=== PATIENT | female | born 1965 | race Caucasian/White ===

== ENCOUNTER 2017-07-11 23:06 | Emergency (ER) | payer OTHER ==
[~2017-07-11] VITALS: Ht 154.9 cm; Wt 113.9 kg
[~2017-07-11 23:06] MED LIST: PREDNISONE10 MG PO
--- NOTE | 2017-07-12 00:15 | ED ANKLE/FOOT INJURY COMPLAINT ---
History of Present Illness General Chief Complaint: Lower Extremity Problems Stated Complaint: RIGHT ANKLE PAIN Source: patient Exam Limitations: no limitations Vital Signs & Intake/Output Vital Signs & Intake/Output Vital Signs Date Time Temp Pulse Resp B/P B/P Pulse O2 O2 Flow FiO2 Mean Ox Delivery Rate 07/12 0107 98.0 69 15 121/67 99 Room Air 07/11 2326 97.0 78 20 130/81 97 Room Air ED Intake and Output 07/12 0000 07/11 1200 Intake Total Output Total Balance Patient 251 lb Weight Weight Reported by Patient Measurement Method Allergies Coded Allergies: NO KNOWN ALLERGIES (10/18/11) Reconcile Medications Morphine Sulfate 15 MG TABLET 1 TAB PO 4XDP PRN PAIN Prednisone (Deltasone) 20 MG TABLET 1 TAB PO ONCE DAILY GOUT Prednisone 10 MG TABLET 0 TAB PO DAILY . 3 TABS TWICE A DAY X 3 DAYS 2 TABS TWICE A DAY X 3 DAYS 1 TABS TWICE A DAY X 3 DAYS 1/2 TAB TWICE A DAY X 2 DAYS Triage Note: PT EREPORTS HAVING RIGHT ANKLE PAIN THAT BEGAN YESTERDAY AFTER WORK. PT STATES THAT SHE HAS HX OF NEUROPATHY. DENIES TRAUMA. PT REPORTS TAKING LYRICA AND NAPROSYN FOR PAIN. NO DEFORMITY NOTED. Triage Nurses Notes Reviewed? yes Occurred: last week Duration: week(s): (1), constant, continues in ED, getting worse Timing: single episode today Severity: moderate, severe Severity Numbers: 9 Pain/Injury Location: Right: Ankle. Method of Injury: unknown No Modifying Factors: none Modifying Factors: Improves With: movement. LMP (ages 10-50): post menopausal : No Patient currently breastfeeds: No HPI: 52-year-old female past mental history of neuropathy, obesity, liver failure, diabetes, ovarian cancer presents for evaluation of pain in her right ankle. Patient states the pain has gradually gotten worse over the past week. The pain is located mostly on the medial aspect of the ankle and does not radiate. It is worse with movement or even lightly touching the area. States that she's been having difficulty sleeping because even the presence of the sheet on her ankle causes severe pain. This been no redness no fever no swelling. There was no known trauma or triggering event. She reports that the sensation as a burning pain. She does have a history of neuropathy refills of his different. She's been taking gabapentin and Lyrica and naproxen without any improvement. She does have numbness and tingling in the bilateral lower extremities at baseline. She denies any calf swelling or pain no recent surgery or trauma. (Jarred Urbina) Past History Travel History Traveled to [place] past 21 day No Medical History Any Pertinent Medical History? see below for history Neurological: peripheral neuropathy Hepatic: STAGE 4 LIVER FAILURE Endocrine: diabetes Cancer(s): ovarian cancer Surgical History Surgical History: non-contributory Psychosocial History What is your primary language [place] Tobacco Use: Never used ETOH Use: denies use Illicit Drug Use: denies illicit drug use Family History Hx Contributory? No (Jarred Urbina) Review of Systems Review of Systems Constitutional: Reports: no symptoms. EENTM: Reports: no symptoms. Respiratory: Reports: no symptoms. Cardiovascular: Reports: no symptoms. GI: Reports: no symptoms. Genitourinary: Reports: no symptoms. Musculoskeletal: Reports: joint pain, joint swelling, muscle pain, muscle stiffness. Skin: Reports: no symptoms. Neurological/Psychological: Reports: no symptoms. Hematologic/Endocrine: Reports: no symptoms. Immunologic/Allergic: Reports: no symptoms. All Other Systems: Reviewed and Negative (Jarred Urbina) Physical Exam Physical Exam General Appearance: well developed/nourished, no apparent distress, alert, awake Head: atraumatic, normal appearance Eyes: Bilateral: normal appearance, EOMI. Ears, Nose, Throat: hearing grossly normal Neck: normal inspection, supple, full range of motion Cardiovascular/Respiratory: no respiratory distress Back: normal inspection, normal range of motion Leg/Knee/Thigh Left: normal range of motion, normal inspection Leg/Knee/Thigh Right: normal range of motion, normal inspection Ankle Left: normal inspection, normal range of motion Ankle Right: normal inspection, normal range of motion, THERE IS SEVERE PAIN WITH PALPATION OF EVEN THE SKIN OF THE OVERLYING MEDIAL ANKLE. tHERE IS NO REDNESS NO OBSERVABLE SWELLING. fULL RANGE OF MOTION OF THE ANKLE IS INTACT BUT WITH PAIN. pATIENT IS ABLE TO WALK AND BEAR WEIGHT. nEUROVASCULAR SUPPLY INTACT. nO BONY POINT TENDERNESS NO GROSS DEFORMITY NO BRUISING Foot Left: normal inspection, normal range of motion Foot Right: normal inspection, normal range of motion Neuro/Vascular: normal motor function, normal sensation Tendon: normal tendon function Psychiatric: awake, alert, oriented x 3 Skin: intact, normal color, warm/dry (Jarred Urbina) Progress Differential Diagnosis: cellulitis, septic arthritis, gout, fracture, dislocation, sprain, contusion Plan of Care: Current Medications Sig/Estrada Start time Last Medication Dose Stop Time Status Admin Morphine Sulfate 4 MG ONCE ONE 07/12 14 UNVr 07/12 (Morphine) 07/13 15 0044 Patient is here with right ankle pain. No trauma or known triggering event. She is able to walk and bear weight. She has severe tenderness with even light palpation of the medial ankle. There is no redness or swelling. She's got pain as a burning pain. Suspect this may be an exacerbation of the patient's peripheral neuropathy or possibly gout. No signs of infection. She was given IM morphine here and is feeling better. She was given a prescription for morphine to go home with. Also she was given a low-dose of prednisone and advised to follow-up with primary care doctor for a uric acid level discussed return precautions in detail. Rest ice elevation compression she agrees the plan Diagnostic Imaging: Viewed by Me: Radiology Read. Discussed w/RAD: Radiology Read. Radiology Impression: PATIENT: ADARSH GRECO PRESENT AGE: 52 PATIENT ACCOUNT NO: [id number] : 65 LOCATION: [facility] ORDERING PHYSICIAN: Fady Watson MD SERVICE DATE: 07/11/17 EXAM TYPE: RAD - XRY-ANKLE 3 OR MORE VIEWS R EXAMINATION: XR ANKLE, RIGHT CLINICAL INFORMATION: Pain COMPARISON: None TECHNIQUE: AP, lateral, and mortise views of the right ankle. FINDINGS: No fracture or dislocation. The ankle mortise is congruent. No ankle joint effusion. Mild circumferential soft tissue swelling. Soft tissue calcifications noted. Plantar heel spur. IMPRESSION: No acute fracture or malalignment. Prominent plantar heel spur. DICTATED BY: Frank Hitchcock MD DATE/TIME DICTATED:07/12/1726 CUT ORDER HAND:ISABELA DATE/ TIME TRANSCRIBED:07/12/1726 CONFIDENTIAL, DO NOT COPY WITHOUT APPROPRIATE AUTHORIZATION. <Electronically signed in Other Vendor System> SIGNED BY: Frank Hitchcock MD 07/12/17 0031 (Jarred Urbina) Departure Departure Disposition: HOME OR SELF CARE Condition: Stable Clinical Impression Primary Impression: Ankle pain, right Qualifiers: Chronicity: acute Qualified Code: M25.571 - Pain in right ankle and joints of right foot Referrals: Unknown (PCP) Additional Instructions: Rest, avoid excessive weightbearing and walking. Keep your ankle elevated. Continue naproxen 500 mg every 12 hours as needed. Take prednisone as directed full course. Morphine as needed for severe pain only this may cause drowsiness. Make a follow-up with her primary care doctor to review all results of today's visit. Monitor symptoms closely return with any concerns. Departure Forms: Customer Survey General Discharge Information Prescriptions: Current Visit Scripts Prednisone (Deltasone) 1 TAB PO ONCE DAILY #5 TAB Morphine Sulfate 1 TAB PO 4XDP PRN PAIN #10 TAB (Jarred Urbina) PA/ACADEMIC ASSISTANT Co-Sign Statement Statement: ED Attending supervision documentation- [] I saw and evaluated the patient. I have also reviewed all the pertinent lab results and diagnostic results. I agree with the findings and the plan of care as documented in the PA's/ACADEMIC ASSISTANT's documentation. [X] I have reviewed the ED Record and agree with the PA's/ACADEMIC ASSISTANT's documentation. [] Additions or exceptions (if any) to the PAs/ACADEMIC ASSISTANT's note and plan are summarized below: [] (Watler BANGURA,aFdy Tsai)
--- NOTE | 2017-07-12 00:31 | RADIOLOGY REPORT ---
EXAMINATION: XR ANKLE, RIGHT CLINICAL INFORMATION: Pain COMPARISON: None TECHNIQUE: AP, lateral, and mortise views of the right ankle. FINDINGS: No fracture or dislocation. The ankle mortise is congruent. No ankle joint effusion. Mild circumferential soft tissue swelling. Soft tissue calcifications noted. Plantar heel spur. IMPRESSION: No acute fracture or malalignment. Prominent plantar heel spur.
[2017-07-12] MEDS ORDERED: DELTASONE20 MG PO (00:59)
[2017-07-12] MEDS ORDERED: MORPHINE SULFAT15 M4 PO (00:59)
[2017-07-12 01:07] VITALS: BP 121/67
== END 2017-07-12 01:09 ==
LOC: ERH 23:06
DX: M25.571 Pain in right ankle and joints of right foot (principal)
CPT/HCPCS: 73610-RT; 96372

== ENCOUNTER 2017-08-01 16:23 | Emergency (ER) | payer OTHER ==
[~2017-08-01] VITALS: Ht 154.9 cm; Wt 113.4 kg
[~2017-08-01 16:23] MED LIST changes: +DELTASONE20 MG PO; +MORPHINE SULFAT15 M4 PO
[2017-08-01 16:53] LABS: ABSOLUTE BASOPHIL COUNT 0 /CUMM (0.0-0.2); ABSOLUTE EOSINOPHIL COUNT 0 /CUMM (0.0-0.7); ABSOLUTE GRANULOCYTE CT 6.4 /CUMM (1.4-6.5); ABSOLUTE LYMPH COUNT 0.6 /CUMM (1.2-3.4); ABSOLUTE MONOCYTE COUNT 0.1 /CUMM (0.10-0.60); BASOPHIL % 0 % (0.0-2.0); EOSINOPHIL % 0.1 % (0-5); GRANULOCYTE % 90.3 % (42.2-75.2); HEMATOCRIT 39.9 % (37-47); MEAN CORPUSCULAR HGB 26.1 PG (27.0-31.0); MEAN CORPUSCULAR HGB CONC 32.7 G/DL (33.0-37.0); MEAN CORPUSCULAR VOLUME 79.7 FL (81.0-99.0); MEAN PLATELET VOLUME 10.9 FL (7.4-10.4); PLATELET COUNT 213 /CUMM (130-400); RBC DISTRIBUTION WIDTH 15.1 % (11.5-14.5); RED BLOOD CELL CT 5.01 /CUMM (4.20-5.40); WHITE BLOOD CELL COUNT 7.1 /CUMM (4.8-10.8)
--- NOTE | 2017-08-01 20:44 | CT SCAN REPORT ---
EXAMINATION: CT ABD PELVIS W/O IV CONTRAS CLINICAL INFORMATION: Presumptive Dx: SBO, PANCREATITS CHOLCYSTITIS, COLITIS
Signs Symptoms: DIFFUSE ABDOMINAL PAIN N/V/D
COMPARISON: None TECHNIQUE: Multidetector volumetric imaging was performed from the superior aspect of the liver through the pubic symphysis Study done without contrast. Sagittal and coronal reformatted images were obtained on the technologist's workstation. DLP: 1239 mGy-cm FINDINGS: LOWER THORAX: Included lung bases are clear. HEPATOBILIARY: Evaluation of the liver is limited on noncontrast study. No CT evidence of large liver mass, no intrahepatic biliary dilatation. GALLBLADDER: Gallbladder unremarkable. SPLEEN: Spleen is normal in size. PANCREAS: No focal mass or ductal dilatation. STOMACH AND GASTROINTESTINAL TRACT: There are postsurgical changes of prior partial gastrectomy. There are postsurgical changes of a prior anastomosis. Nonobstructive bowel gas pattern. No CT evidence of appendicitis. ADRENALS: Bilateral hypertrophic changes of the adrenal, no adrenal mass. KIDNEYS/URETERS: Evaluation of the kidneys limited on noncontrasted study, there are no kidney stones. No hydronephrosis. Perinephric fat are clear. URINARY BLADDER: Bladder is distended unopacified. PELVIC VISCERA: Rectum and perirectal fat are clear. Uterus unremarkable. No pelvic mass or free air. No free fluid. PERITONEUM: No free air or fluid. LYMPH NODES: No lymphadenopathy. VASCULAR:Abdominal aorta normal in size, no aneurysm found. BONES, ABDOMINAL WALL AND SOFT TISSUES: Subacute incompletely healed a fracture anterior lateral aspect of the LEFT ninth rib. There are age-related degenerative changes of the spine. No destructive bone lesion. Abdominal wall is intact. No evidence of hernia. IMPRESSION: 1. Postsurgical changes of prior gastric surgery, bowel anastomosis. 2. No CT evidence of acute intra-abdominal inflammatory process to explain patient's pain symptoms. 3. Subacute incompletely healed anterior lateral aspect of the LEFT ninth rib.
--- NOTE | 2017-08-01 22:15 | ED GI/GU/ABDOMINAL COMPLAINT ---
History of Present Illness General Chief Complaint: General Adult Stated Complaint: PT VOMITING ALL NIGTH CAN'T KEEP ANYTING DOWN Source: patient, old records Exam Limitations: no limitations Vital Signs & Intake/Output Vital Signs & Intake/Output Vital Signs Date Time Temp Pulse Resp B/P B/P Pulse O2 O2 Flow FiO2 Mean Ox Delivery Rate 08/01 2305 98.4 70 20 144/75 97 Room Air 08/01 2014 98.6 68 20 156/67 100 Room Air 08/01 1805 Room Air 08/01 1631 97.7 69 30 139/73 99 Room Air Allergies Coded Allergies: NO KNOWN ALLERGIES (10/18/11) Reconcile Medications Morphine Sulfate 15 MG TABLET 1 TAB PO 4XDP PRN PAIN Prednisone (Deltasone) 20 MG TABLET 1 TAB PO ONCE DAILY GOUT Prednisone 10 MG TABLET 0 TAB PO DAILY . 3 TABS TWICE A DAY X 3 DAYS 2 TABS TWICE A DAY X 3 DAYS 1 TABS TWICE A DAY X 3 DAYS 1/2 TAB TWICE A DAY X 2 DAYS Promethazine HCl 12.5 MG TABLET 1 TAB PO Q6-8 PRN NAUSEA Triage Note: 52F REPORTS N/V SINCE LAST NIGHT, UNABLE TO KEEP ANYTHING DOWN. REPORTS DIARRHEA LAST NIGHT. DENIES BLOOD TO EMESIS OR STOOL. REPORTS DIFFUSE ABDOMINAL PAIN. HX LIVER FAILURE. PT IS ANXIOUS AND HYPERVENTILATING IN TRIAGE. MEDICATED WITH ODT. BECAME INCREASINGLY ANXIOUS ABOUT BLOOD DRAW BECAUSE SHE HAS "NO VEINS" SO THIS RN RUFINA VIA BUTTERFLY IN TRIAGE AND PT WAS WIMPERING AND CRYING AND HYPERVENTILATING MORE, AND WHEN BLOODWORK SUCCESSFULLY OBTAINED PT WENT UNRESPONSIVE BUT BREATHING ADEQUATELY. SHOT AWAKE AFTER STERNAL RUB. Triage Nurses Notes Reviewed? yes LMP (ages 10-50): unknown ? N Is pt currently ? No Onset: Abrupt Duration: day(s): (1-2), constant, continues in ED, getting worse Timing: single episode today Quality/Severity: cramping, vomiting Severity Numbers: 7 Location: generalized abdomen Radiation: no radiation Activities at Onset: none Prior Abdominal Problems: similar symptoms Past Sexual History: Unobtainable at this time No Modifying Factors: none Modifying Factors: Worsens With: palpation, vomiting. Associated Symptoms: abdominal pain, diarrhea, nausea/vomiting HPI: 52-year-old female history of obesity, diabetes, liver failure presents for evaluation of abdominal pain nausea vomiting and diarrhea. Patient states symptoms started last night and been persistent. She reports multiple episodes of vomiting and watery diarrhea. No blood or melena. She also reports associated diffuse abdominal pain. She discussed pain as cramping. She's not been able tolerate anything by mouth. She states that she has been dry heaving now. She reports she had similar symptoms shortly after her gastric bypass several years ago. She was diagnosed with early dumping syndrome. She states from time to time she will have episodes like this. She denies any chest pain shortness of breath or fever. No recent antibiotics or recent travel. No sick contacts. She's not been taking any medicine for the nausea or pain. (Jarred Urbina) Past History Travel History Traveled to [place] past 21 day No Medical History Any Pertinent Medical History? see below for history Neurological: peripheral neuropathy Hepatic: STAGE 4 LIVER FAILURE Endocrine: diabetes Cancer(s): ovarian cancer Surgical History Surgical History: non-contributory Psychosocial History What is your primary language Slovenian Tobacco Use: Refused to answer Family History Hx Contributory? No (Jarred Urbina) Review of Systems Review of Systems Constitutional: Reports: no symptoms. EENTM: Reports: no symptoms. Respiratory: Reports: no symptoms. Cardiovascular: Reports: no symptoms. GI: Reports: see HPI, abdominal pain, diarrhea, nausea, vomiting. Genitourinary: Reports: no symptoms. Musculoskeletal: Reports: no symptoms. Skin: Reports: no symptoms. Neurological/Psychological: Reports: no symptoms. Hematologic/Endocrine: Reports: no symptoms. Immunologic/Allergic: Reports: no symptoms. All Other Systems: Reviewed and Negative (Jarred Urbina) Physical Exam Physical Exam General Appearance: well developed/nourished, no apparent distress, alert, awake , obese Head: atraumatic, normal appearance Eyes: Bilateral: normal appearance, PERRL, EOMI, normal inspection. Ears, Nose, Throat, Mouth: moist mucous membrane Neck: normal inspection, supple, full range of motion Respiratory: normal breath sounds, chest non-tender, no respiratory distress, lungs clear Cardiovascular: regular rate/rhythm, normal peripheral pulses Peripheral Pulses: 2+ radial (R), 2+ radial (L) Gastrointestinal: normal bowel sounds, soft, no organomegaly, tenderness ( diffuse) Back: normal inspection, normal range of motion, no vertebral tenderness Extremities: normal range of motion Neurologic/Psych: no motor/sensory deficits, awake, alert, oriented x 3 Skin: intact, normal color, warm/dry Core Measures ACS in differential dx? No Sepsis Present: No Sepsis Focused Exam Completed? No (Flo ROE,Jarred) Progress Differential Diagnosis: appendicitis, biliary colic, bowel obstruction, colon cancer, cholecystitis, diverticulitis, gastritis, ischemic bowel, inflamm bowel dis, kidney stone, ovarian cyst, ovarian torsion, pancreatitis, PID/cervicitis, peptic ulcer, PUD/GERD, SBO, UTI/pyelo Plan of Care: Orders Procedure Date/time Status LACTIC ACID 08/01 194 Complete TROPONIN LEVEL 08/01 164 Complete LIPASE 08/01 164 Complete LACTIC ACID 08/01 164 Complete COMPREHENSIVE METABOLIC PANEL 08/01 164 Complete CBC WITHOUT DIFFERENTIAL 08/01 164 Complete AMYLASE 08/01 164 Complete EKG 08/01 164 Active Laboratory Tests 08/01/17 2010: Lactic Acid 1.8 08/01/17 1644: Anion Gap 14, Estimated GFR > 60, BUN/Creatinine Ratio 18.0, Glucose 156 H, Lactic Acid 3.2 H, Calcium 10.0, Total Bilirubin 0.4, AST 41 H, ALT 29, Alkaline Phosphatase 127 H, Troponin I < 0.01, Total Protein 7.8, Albumin 4.3, Globulin 3.5, Albumin/Globulin Ratio 1.2, Amylase 42, Lipase 75, CBC w Diff NO MAN DIFF REQ, RBC 5.01, MCV 79.7 L, MCH 26.1 L, MCHC 32.7 L, RDW 15.1 H, MPV 10.9 H, Gran % 90.3 H, Lymphocytes % 8.9 L, Monocytes % 0.7 L, Eosinophils % 0.1, Basophils % 0, Absolute Granulocytes 6.4, Absolute Lymphocytes 0.6 L, Absolute Monocytes 0.1, Absolute Eosinophils 0, Absolute Basophils 0 Patient seen and evaluated. She is here with nausea vomiting diarrhea and abdominal pain. She's not been tolerating much by mouth. Her vital signs are stable. On exam she has diffuse abdominal tenderness and is dry heaving. Labs IV fluids IV Reglan ordered. Patient appears very anxious especially related to the placement of an IV. She was given a milligram of IM Ativan with good improvement. She denies chest pain or shortness of breath. She has had syncopal episodes in the past associated with the blood draw. Her EKG is not showing any change. Blood work shows a lactic acid of 3 and IV was ordered. Remaining blood work is not showing any significant changes. CT scan of the abdomen and pelvis was ordered which is also not showing any acute findings. Patient reports continued nausea and dry heaving. IV Phenergan ordered IV Toradol for pain. Repeat lactic acid is now 1.8. Patient report improvement in her nausea now. She's been in the emergency department for 6-1/2 hours. She appears clinically well. She was able tolerate food and fluids by mouth without any additional vomiting after the Phenergan. Patient will be discharged home with a prescription for Phenergan. Advised her to continue to increase fluids and eat bland foods. Follow-up with the primary care doctor. Return to the emergency department any concerns discussed return precautions patient agrees the plan Diagnostic Imaging: Viewed by Me: CT Scan. Discussed w/RAD: CT Scan. Radiology Impression: PATIENT: ADARSH GRECO PRESENT AGE: 52 PATIENT ACCOUNT NO: [id number] : 65 LOCATION: [facility] ORDERING PHYSICIAN: Jarred ROE SERVICE DATE: 08/01/17 EXAM TYPE: CAT - CT ABD & PELVIS W/O IV CONTRAS EXAMINATION: CT ABD PELVIS W/O IV CONTRAS CLINICAL INFORMATION: Presumptive Dx: SBO, PANCREATITS CHOLCYSTITIS, COLITIS
Signs Symptoms: DIFFUSE ABDOMINAL PAIN N/V/D
COMPARISON: None TECHNIQUE: Multidetector volumetric imaging was performed from the superior aspect of the liver through the pubic symphysis Study done without contrast. Sagittal and coronal reformatted images were obtained on the technologist's workstation. DLP: 1239 mGy-cm FINDINGS: LOWER THORAX: Included lung bases are clear. HEPATOBILIARY : Evaluation of the liver is limited on noncontrast study. No CT evidence of large liver mass, no intrahepatic biliary dilatation. GALLBLADDER: Gallbladder unremarkable. SPLEEN: Spleen is normal in size. PANCREAS: No focal mass or ductal dilatation. STOMACH AND GASTROINTESTINAL TRACT: There are postsurgical changes of prior partial gastrectomy. There are postsurgical changes of a prior anastomosis. Nonobstructive bowel gas pattern. No CT evidence of appendicitis. ADRENALS: Bilateral hypertrophic changes of the adrenal, no adrenal mass. KIDNEYS/URETERS: Evaluation of the kidneys limited on noncontrasted study, there are no kidney stones. No hydronephrosis. Perinephric fat are clear. URINARY BLADDER: Bladder is distended unopacified. PELVIC VISCERA: Rectum and perirectal fat are clear. Uterus unremarkable. No pelvic mass or free air. No free fluid. PERITONEUM: No free air or fluid. LYMPH NODES: No lymphadenopathy. VASCULAR: Abdominal aorta normal in size, no aneurysm found. BONES, ABDOMINAL WALL AND SOFT TISSUES: Subacute incompletely healed a fracture anterior lateral aspect of the LEFT ninth rib. There are age-related degenerative changes of the spine. No destructive bone lesion. Abdominal wall is intact. No evidence of hernia. IMPRESSION: 1. Postsurgical changes of prior gastric surgery, bowel anastomosis. 2. No CT evidence of acute intra-abdominal inflammatory process to explain patient's pain symptoms. 3. Subacute incompletely healed anterior lateral aspect of the LEFT ninth rib. DICTATED BY: Osorio Mosher MD DATE/TIME DICTATED:08/01 PLATE EMBOSSER:ISABELA DATE/TIME TRANSCRIBED:08/01/172023 CONFIDENTIAL, DO NOT COPY WITHOUT APPROPRIATE AUTHORIZATION. <Electronically signed in Other Vendor System> SIGNED BY: Vidhi BANGURA,Osorio 08/01/ Initial ED EKG: normal sinus rhythm, no ST T wave changes Prior EKG: unchanged (Jarred Urbina) Departure Departure Disposition: HOME OR SELF CARE Condition: Stable Clinical Impression Primary Impression: Nausea & vomiting Qualifiers: Vomiting type: unspecified Vomiting Intractability: non-intractable Qualified Code: R11.2 - Nausea with vomiting, unspecified Referrals: Unknown (PCP) Additional Instructions: Rest and drink plenty of fluids. Eat bananas rice applesauce and toast. Phenergan as needed for nausea. Make a follow-up with your primary care doctor to review all results of today's visit. Monitor symptoms closely return with any concerns. Departure Forms: Customer Survey General Discharge Information Prescriptions: Current Visit Scripts Promethazine HCl 1 TAB PO Q6-8 PRN NAUSEA #20 TAB (Jarred Urbina) PA/DYE RANGE OPERATOR CLOTH Co-Sign Statement Statement: ED Attending supervision documentation- I saw and evaluated the patient. I have also reviewed all the pertinent lab results and diagnostic results. I agree with the findings and the plan of care as documented in the PA's/DYE RANGE OPERATOR CLOTH's documentation. x I have reviewed the ED Record and agree with the PA's/DYE RANGE OPERATOR CLOTH's documentation. [] Additions or exceptions (if any) to the PAs/DYE RANGE OPERATOR CLOTH's note and plan are summarized below: [] (Lizy BANGURA,Rodríguez) ED Attending Observation Initial Observation Note: I have seen and personally examined ADARSH GRECO on 08/01/17 at 2307. I agree with the current emergency department documentation. The disposition (admission or discharge) is uncertain at this time, she needs a period of observation for the following reason(s): The ED Nurse caring for this patient has been personally informed as to what the patient is being observed for. (Flo ROE,Jarred)
[2017-08-01] MEDS ORDERED: PROMETHAZINE12.5 M2 PO (23:02)
[2017-08-01 23:05] VITALS: BP 144/75
== END 2017-08-01 23:08 ==
LOC: ERH 16:23
PROVIDERS: Emergency Medicine
DX: R11.2 Nausea with vomiting, unspecified (principal)
CPT/HCPCS: 74176; 93005; 93010; 96372; 96374; 96375; J1885; J2550; J2765; J3101